=== PATIENT | male | born 1965 | race Caucasian/White ===

== ENCOUNTER 2018-01-04 02:24 | Emergency (ER) | payer BC ==
[2018-01-04 03:14] LABS: ABS Basophils 0 10^3/ul (0-0.2); ABS Eosinophils 0.2 10^3/ul (0-0.6); ABS Monocytes 0.6 10^3/ul (0-0.8); ABS Neutrophils 2.3 10^3/ul (1.5-7.7); ABS Nucleated RBC 0 10^3/ul; Eosinophil % 4.5 % (0-6); Hematocrit 47 % (42-52); Hemoglobin 16.3 g/dl (14.0-18.0); Lymphocyte % 39.1 % (25-47); Mean Corpuscular HGB Conc 35 g/dl (31-36); Mean Corpuscular Hemoglobin 32 pg (27-31); Mean Corpuscular Volume 92 fL (80-94); Mean Platelet Volume 8.7 um3 (7.4-10.4); Nucleated Red Blood Cells % 0.1; Platelet Count 151 10^3/ul (150-450); Red Blood Count 5.14 10^6/ul (4.0-5.4); Red Cell Distribution Width 13 % (10.5-15); White Blood Count 5.2 10^3/ul (3.5-10.8)
[2018-01-04 03:24] LABS: INR 1.13 (0.77-1.02)
[2018-01-04] MEDS ORDERED: Nitroglycerin 0.1 mg/Hr PATCH* (2.5 MG) TRANSDERM ONE (04:23)
[2018-01-04 06:21] VITALS: BP 121/78
--- NOTE | 2018-01-04 06:42 | ED ---
Haylee Moy Gabriel, scribed for Guevara Greene on 01/04/18 at 0355 . HPI Chest Pain - HPI Summary HPI Summary: This patient is a 52 year old M presenting to [facility] accompanied by his with a chief complaint of left sided CP that awoke the patient at 0130 minutes ago. The patient rates the pain 2/10 in severity. Patient denies n/v, dizziness , diaphoresis, light headedness, and SOB. Pt has no cardiac history. Pts sister had a PR at 50 y/o Last stress test was in July of last year which showed nothing significant. - History of Current Complaint Chief Complaint: EDChestPainROMI Time Seen by Provider: 01/04/18 03:06 Hx Obtained From: Patient Onset/Duration: Still Present Time of Onset: 01:30 Timing: Constant Initial Severity: Mild Current Severity: Mild Pain Intensity: 2 Pain Scale Used: 0-10 Numeric Chest Pain Location: Left Lateral Chest Pain Radiates: No Associated Signs and Symptoms: Positive: Negative - n/v, dizziness, diaphoresis , light headedness, and SOB. - Allergy/Home Medications Allergies/Adverse Reactions: Allergies Allergy/AdvReac Type Severity Reaction Status Date / Time No Known Allergies Allergy Verified 01/04/18 02:34 Home Medications: Home Medications NK [No Home Medications Reported] 01/04/18 [History Confirmed 01/04/18] PMH/Surg Hx/FS Hx/Imm Hx Endocrine/Hematology History: Denies: Hx Anticoagulant Therapy, Hx Blood Disorders, Hx Blood Transfusions, Hx Bone Marrow Disease Cardiovascular History: Denies: Hx Cardiomegaly, Hx Congenital Heart Disease Respiratory History: Denies: Hx Chronic Obstructive Pulmonary Disease (COPD) GI History: Denies: Hx Gastrointestinal Bleed Neurological History: Denies: Hx CVA, Hx Dementia Infectious Disease History: No Infectious Disease History: Denies: Traveled Outside the [place] in Last 30 Days - Family History Known Family History: Positive: Cardiac Disease - Social History Lives: With Family Alcohol Use: None Hx Substance Use: No Substance Use Type: Reports: None Hx Tobacco Use: No Smoking Status (MU): Never Smoked Tobacco Review of Systems Negative: Skin Diaphoresis Positive: Chest Pain Negative: Shortness Of Breath Negative: Vomiting, Nausea Neurological: Negative - dizziness, light headedness All Other Systems Reviewed And Are Negative: Yes Physical Exam - Summary Physical Exam Summary: Appearance: Well appearing, no pain distress Skin: warm, dry, reflects adequate perfusion Head/face: normal Eyes: EOMI, TAMAR ENT: normal Neck: supple, non-tender Respiratory: CTA, breath sounds present Cardiovascular: RRR, pulses symmetrical Abdomen: non-tender, soft Bowel: present Musculoskeletal: normal, strength/ROM intact Neuro: normal, sensory motor intact, A&Ox3 Triage Information Reviewed: Yes Vital Signs On Initial Exam: Initial Vitals Temp Pulse Resp BP Pulse Ox 97.1 F 78 18 132/80 97 01/04/18 02:32 01/04/18 02:32 01/04/18 02:32 01/04/18 02:32 01/04/18 02:32 Vital Signs Reviewed: Yes Diagnostics - Vital Signs Vital Signs Temp Pulse Resp BP Pulse Ox 01/04/18 03:01 58 15 97 01/04/18 03:00 56 17 130/85 96 01/04/18 02:32 97.1 F 78 18 132/80 97 - Laboratory Lab Results: Lab Results 01/04/18 01/04/18 01/04/18 Range/Units 03:05 03:05 03:05 WBC 5.2 (3.5-10.8) 10^3/ul RBC 5.14 (4.0-5.4) 10^6/ul Hgb 16.3 (14.0-18.0) g/dl Hct 47 (42-52) % MCV 92 (80-94) fL MCH 32 H (27-31) pg MCHC 35 (31-36) g/dl RDW 13 (10.5-15) % Plt Count 151 (150-450) 10^3/ul MPV 8.7 (7.4-10.4) um3 Neut % (Auto) 44.4 (38-83) % Lymph % (Auto) 39.1 (25-47) % [place] % (Auto) 11.1 H (0-7) % Eos % (Auto) 4.5 (0-6) % Baso % (Auto) 0.9 (0-2) % Absolute Neuts (auto) 2.3 (1.5-7.7) 10^3/ul Absolute Lymphs (auto) 2.0 (1.0-4.8) 10^3/ul Absolute Monos (auto) 0.6 (0-0.8) 10^3/ul Absolute Eos (auto) 0.2 (0-0.6) 10^3/ul Absolute Basos (auto) 0 (0-0.2) 10^3/ul Absolute Nucleated RBC 0 10^3/ul Nucleated RBC % 0.1 INR (Anticoag Therapy) 1.13 H (0.77-1.02) APTT 30.8 (26.0-36.3) seconds Sodium 139 (139-145) mmol/L Potassium 4.3 (3.5-5.0) mmol/L Chloride 103 (101-111) mmol/L Carbon Dioxide 30 (22-32) mmol/L Anion Gap 6 (2-11) mmol/L BUN 19 (6-24) mg/dL Creatinine 1.34 H (0.67-1.17) mg/dL Est GFR ( Amer) 72.0 (>60) Est GFR (Non-Af Amer) 56.0 (>60) BUN/Creatinine Ratio 14.2 (8-20) Glucose 104 H (70-100) mg/dL Lactic Acid (0.5-2.0) mmol/L Calcium 9.2 (8.6-10.3) mg/dL Total Bilirubin 0.80 (0.2-1.0) mg/dL AST 24 (13-39) U/L ALT 14 (7-52) U/L Alkaline Phosphatase 63 (34-104) U/L Troponin I 0.00 (<0.04) ng/mL Total Protein 7.1 (6.4-8.9) g/dL Albumin 4.5 (3.2-5.2) g/dL Globulin 2.6 (2-4) g/dL Albumin/Globulin Ratio 1.7 (1-3) 01/04/18 Range/Units 03:05 WBC (3.5-10.8) 10^3/ul RBC (4.0-5.4) 10^6/ul Hgb (14.0-18.0) g/dl Hct (42-52) % MCV (80-94) fL MCH (27-31) pg MCHC (31-36) g/dl RDW (10.5-15) % Plt Count (150-450) 10^3/ul MPV (7.4-10.4) um3 Neut % (Auto) (38-83) % Lymph % (Auto) (25-47) % [place] % (Auto) (0-7) % Eos % (Auto) (0-6) % Baso % (Auto) (0-2) % Absolute Neuts (auto) (1.5-7.7) 10^3/ul Absolute Lymphs (auto) (1.0-4.8) 10^3/ul Absolute Monos (auto) (0-0.8) 10^3/ul Absolute Eos (auto) (0-0.6) 10^3/ul Absolute Basos (auto) (0-0.2) 10^3/ul Absolute Nucleated RBC 10^3/ul Nucleated RBC % INR (Anticoag Therapy) (0.77-1.02) APTT (26.0-36.3) seconds Sodium (139-145) mmol/L Potassium (3.5-5.0) mmol/L Chloride (101-111) mmol/L Carbon Dioxide (22-32) mmol/L Anion Gap (2-11) mmol/L BUN (6-24) mg/dL Creatinine (0.67-1.17) mg/dL Est GFR ( Amer) (>60) Est GFR (Non-Af Amer) (>60) BUN/Creatinine Ratio (8-20) Glucose (70-100) mg/dL Lactic Acid 0.7 (0.5-2.0) mmol/L Calcium (8.6-10.3) mg/dL Total Bilirubin (0.2-1.0) mg/dL AST (13-39) U/L ALT (7-52) U/L Alkaline Phosphatase (34-104) U/L Troponin I (<0.04) ng/mL Total Protein (6.4-8.9) g/dL Albumin (3.2-5.2) g/dL Globulin (2-4) g/dL Albumin/Globulin Ratio (1-3) Result Diagrams: 01/04/18 03:05 01/04/18 03:05 Lab Statement: Any lab studies that have been ordered have been reviewed, and results considered in the medical decision making process. - CT CXR CT Interpretation Completed By: ED Physician - no acute process - EKG 02:21 Cardiac Rate: NL EKG Rhythm: Sinus Rhythm - at 61 BPM Ectopy: None EKG Interpretation: no acute changes Chest Pain Course/Dx - Course Assessment/Plan: This patient is a 52 year old M presenting to [facility] accompanied by his with a chief complaint of left sided CP that awoke the patient at 0130 minutes ago. The patient rates the pain 2/10 in severity. Patient denies n/v, dizziness, diaphoresis, light headedness, and SOB. Pt has no cardiac history. Pts sister had a PR at 50 y/o. Last stress test was in July of last year which showed nothing significant. An EKG reveals NSR. CXR reveals, no acute process. Blood work obtained. Pt refused NTG patch. We discussed patient care with Dr. Sutherland and they have agreed to come and assess the patient.she did a consult and She recommended the patient should be discharged home - Chest Pain Differential Diagnosis/HQI/PQRI: Acute PR, ACS, Angina, Lower Respiratory Infection - Diagnoses Provider Diagnoses: Chest pain - Provider Notifications Discussed Care Of Patient With: Fauzia Sutherland Time Discussed With Above Provider: 04:50 Instructed by Provider To: Other - Dr. Sutherland will come and assess the patient. Discharge - Sign-Out/Discharge Documenting (check all that apply): Discharge/Admit/Transfer - Discharge Plan Condition: Stable Disposition: HOME Patient Education Materials: Chest Pain (ED) Referrals: Gerald RODRIGUEZ,Rigo Meeks [Primary Care Provider] - 3 Days Additional Instructions: RETURN TO THE EMERGENCY DEPARTMENT FOR CHANGING OR WORSENING SYMPTOMS - Billing Disposition and Condition Condition: STABLE Disposition: HOME The documentation as recorded by the Haylee dey Gabriel accurately reflects the service I personally performed and the decisions made by , Guevara Greene.
--- NOTE | 2018-01-04 08:18 | RAD ---
Indication: Chest pain Comparison: No relevant prior exams available on the [facility] PACS for comparison. Technique: Upright AP 0320 hours Report: Elevated lung volumes and both diffuse mild prominence and patchy rarefaction of the interstitial markings. No focal pulmonary lesion, compelling alveolar consolidation, pleural effusion, pneumothorax. The heart, pulmonary vasculature, and mediastinal contours are unremarkable. Unremarkable soft tissue contours and osseous structures. IMPRESSION: Stigmata of obstructive lung disease. No acute pulmonary or cardiac process evident.
--- NOTE | 2018-01-04 08:31 | CONS ---
CC: Rigo Duarte MD * CONSULTATION REPORT: DATE OF CONSULTATION: 01/04/18 - EMERGENCY DEPT PRIMARY CARE PROVIDER: Dr. Rigo Duarte at [facility] in [place], [place]. CHIEF COMPLAINT: Chest pain. HISTORY OF PRESENT ILLNESS: Mr. Bradley is a 52-year-old male who has no significant past medical history, who presents to the emergency room with complaints of chest pain. The patient states he was awakened from sleep at approximately 1:30 a.m. with left-sided chest discomfort. He described as an ache. He states he has never experienced anything like this in the past. The patient states that he tried to walk around, drink water and the pain persisted , therefore he presented to the emergency room. The patient states that he has not done anything out of the ordinary. His exertion level has been about the same. He in fact ran in the [place] on the afternoon prior to admission without any chest pain or shortness of breath. The patient states that he will run approximately 35 miles per week without any chest pain or shortness of breath. Last year however, the patient did have some shortness of breath that was abnormal and therefore underwent stress test and echocardiogram in July 2017. This was reportedly normal. This was done in [place]. The patient does not smoke. He does not have any hypertension. He is not overweight. His sister at the age of 50, however, did have an AR. PAST MEDICAL HISTORY: None. PAST SURGICAL HISTORY: None. MEDICATIONS: None. ALLERGIES: None. FAMILY HISTORY: Mom at the age of 86 of Alzheimer's, dad at the age of 69 of complications related to being confined to bed. SOCIAL HISTORY: The patient is a nonsmoker. He drinks alcoholic beverages 3 to 4 times per week. He works at [employer]. He is . He has no biologic children. His , She is his healthcare proxy. REVIEW OF SYSTEMS: A complete 11-system review of systems is obtained. Pertinent positives and negatives as per HPI and otherwise negative. PHYSICAL EXAMINATION: Blood pressure 121/78, pulse 54, respirations 16, temp 97.1, and O2 sat 99% on room air. General: The patient is a well-developed, thin, middle-aged male, seen sitting up in bed, in no acute distress. HEENT: Pupils are equal and round. Extraocular muscles are intact. Oropharynx is clear. Oral mucosa is moist. There is no submandibular, cervical or supraclavicular adenopathy. Thyroid is not enlarged. No thyroid nodule is noted. Cardiac: Normal S1, S2. Heart rate is bradycardic but regular. There is no lower extremity edema. Pulmonary: Lungs are clear to auscultation bilaterally. Abdomen: Bowel sounds are present. Abdomen is soft, nontender, nondistended. Musculoskeletal: There is no cyanosis or clubbing of the digits. There is full active range of motion of all 4 extremities. Skin is warm and dry. There are no rashes. Neuro: Cranial nerves II through XII are grossly intact. Sensation is intact to light touch throughout. Strength is 5/5 and symmetric both upper and lower extremities bilaterally. Psych: The patient is alert, he is oriented to x3. Affect appears appropriate. DIAGNOSTIC STUDIES/LAB DATA: WBC 5.2, hemoglobin 16.3, hematocrit 47, platelets 151, INR 1.13. D-dimer less than 200. Sodium 139, potassium 4.3, chloride 103, CO2 30, BUN 19, creatinine 1.34, glucose 104, lactic acid 0.7, calcium 9.2, bilirubin 0.8, AST 24, ALT 14, alk phos 63, troponin 0, LDL 4.5. EKG reveals normal sinus rhythm without any acute ST-T wave abnormalities. Chest x-ray reveals clear lungs bilaterally to my interpretation. ASSESSMENT AND PLAN: Mr. Bradley is a 52-year-old male with no significant past medical history who runs approximately 35 miles per week without any chest pain or shortness of breath, who presents to the emergency room after awakening from sleep on the morning of consultation with complaints of left-sided chest pain. 1. Chest pain. My suspicion is that this is not cardiac in nature. The patient in [place] the [place] prior to his ER visit without any chest pain or shortness of breath. The patient does state that he has had significant amount of gas. Perhaps that is what has led to his chest discomfort. This discomfort went away on its own after approximately 4 hours. The patient also had an echocardiogram and stress test within the last one year , specifically approximately 6 months ago that was reportedly normal. At this point, the patient will have a repeat troponin obtained. If it is negative, he can likely be discharged home with follow up with his primary care provider. The patient will be instructed to return to the emergency room if he has any return of the chest pain. 2. The patient is a full code. TIME SPENT: 65 minutes was spent on the consultation of this patient. [id number]/CPS #: [id number] MTDD
== END 2018-01-04 06:21 | disposition home or self-care (01) ==
LOC: ED 02:24
DX: R07.9 Chest pain, unspecified (principal); Z82.49 Family history of ischemic heart disease and other diseases of the circulatory system
CPT/HCPCS: 36415; 71045; 80053; 83605; 84484; 85025; 85379; 85610; 85730; 93005; 99282